=== PATIENT | male | born 2005 | race African-American/Black ===

== ENCOUNTER 2023-10-25 22:36 | Emergency (ER) | payer MEDICAID ==
[~2023-10-25] VITALS: Ht 200.7 cm; Wt 99.8 kg
[2023-10-25 22:50] VITALS: PULSE 84; RESP 18; TEMP 98.3; O2SAT 98
[2023-10-26] MEDS ORDERED: DIPHTH,PERTUSS(ACELL),TET VAC 0.5 ML VIAL (Tdap) I.M. ONE (01:30)
[2023-10-26 02:00] VITALS: BP_SYST 115; PULSE 78; RESP 18; TEMP 98.1; O2SAT 98
== END 2023-10-26 02:00 | disposition home or self-care (01) ==
LOC: SED 22:36
DX: S61.411A Laceration without foreign body of right hand, initial encounter (principal); Z79.899 Other long term (current) drug therapy; W26.8XXA Contact with other sharp object(s), not elsewhere classified, initial encounter; Y93.89 Activity, other specified; Y92.89 Other specified places as the place of occurrence of the external cause; Y99.8 Other external cause status
CPT/HCPCS: 90715; 99283